=== PATIENT | male | born 1955 | race Caucasian/White ===

== ENCOUNTER 2021-05-03 08:39 | Emergency (ER) | payer MEDICARE, OTHER ==
[~2021-05-03] VITALS: Ht 182.9 cm; Wt 79.4 kg
[2021-05-03 08:55] VITALS: BP_SYST 147
--- NOTE | 2021-05-03 08:55 | NUR ---
Patient to ER bed 8 to gown for evaluation. Side rails up. Report given to JONY FLOR.
--- NOTE | 2021-05-03 09:00 | NUR ---
Pt. came in with c/o pain tp right hand/wrist since sunday, pt. states did yard work sunday as possible contributing factor but no known injury
--- NOTE | 2021-05-03 09:04 | NUR ---
ER at bedside examining patient.
[2021-05-03] MEDS ORDERED: NAPR-688 PO (10:00)
[2021-05-03 10:05] VITALS: BP_SYST 147
--- NOTE | 2021-05-03 10:05 | NUR ---
Patient given written and verbal discharge instructions and verbalizes understanding. ER MD discussed with patient the results and treatment provided. Patient in stable condition. ID arm band removed. Rx of NAPROXEN given. Patient educated on pain management and to follow up with PMD. Pain Scale 2. Opportunity for questions provided and answered. Medication side effect fact sheet provided.
== END 2021-05-03 10:05 | disposition home or self-care (01) ==
LOC: SED 08:39
DX: S63.501A Unspecified sprain of right wrist, initial encounter (principal); X50.9XXA Other and unspecified overexertion or strenuous movements or postures, initial encounter; Y93.89 Activity, other specified; Y92.89 Other specified places as the place of occurrence of the external cause; Y99.8 Other external cause status
CPT/HCPCS: 99283